=== PATIENT | female | born 1995 ===

== ENCOUNTER 2017-01-06 06:15 | Inpatient (IN) | payer BC ==
[~2017-01-06] VITALS: Ht 144.9 cm; Wt 68.2 kg
[2017-02-25] VITALS (20 sets, daily range): BP systolic 89–138; BP diastolic 41–93; PULSE 68–96; TEMP 97.6–97.8
[2017-02-25 06:18] LABS: BASO % 0.4 % (0.0-2.0); EOS # 0.3 (0.0-0.7); EOS % 2.4 % (0-4.0); GRAN # 6.7 (1.4-6.5); GRAN % 63.6 % (42.2-75.2); LYMPH # 2.6 (1.2-3.4); LYMPH % 24.4 % (20.0-51.0); MEAN CELL VOLUME 81 fl (80.0-95.0); MEAN CORPUSCULAR HGB CONC 33 g/dl (33.0-37.0); MEAN PLATELET VOLUME 10.2 fl (7.4-10.4); MONO # 0.9 (0.1-0.6); MONO % 8.6 % (1.7-9.3); PLATELET COUNT 204 K/mm3 (130-400); RED BLOOD COUNT 4.41 M/mm3 (4.10-5.30); REDCELL DISTRIBUTION WIDTH-CV 13.6 % (11.5-14.5); WHITE BLOOD COUNT 10.5 K/mm3 (4.8-10.8)
[2017-02-25 06:19] LABS: HEMATOCRIT 35.6 % (35.0-45.0); HEMOGLOBIN 11.7 g/dl (12.0-15.0); MEAN CORPUSCULAR HEMOGLOBIN 27 pg (26.0-32.0)
[2017-02-25] MEDS ORDERED: PRENATAL MVI (06:33)
[2017-02-26 01:30] VITALS: BP 105/75; PULSE 87; TEMP 97.7
[2017-02-26 07:19] VITALS: BP 107/66; PULSE 79
[2017-02-26] MEDS ORDERED: IBU600 MG PO (10:32)
[2017-02-26] MEDS ORDERED: PERCOCET 325 MG1 TA2 PO (10:32)
[2017-02-26 16:13] VITALS: BP 107/67; PULSE 88; TEMP 98.1
[2017-02-26 20:30] VITALS: BP 123/77; PULSE 75; TEMP 97.9
[2017-02-27 07:50] VITALS: BP 123/79; PULSE 88; TEMP 97.6
== END 2017-02-27 13:30 | disposition home or self-care (01) | DRG 766 ==
LOC: LDR → OB 02-25 05:54 → LDR 02-25 07:38 → OB 02-27 13:30 → LDRO 03-25 06:14 → EDSTATUS 03-25 07:32
PROVIDERS: Obstetrics & Gynecology
PROC: 10D00Z1 Extraction of Products of Conception, Low, Open Approach (ICD-10-PCS; principal; 2017-02-25)
DX: O34.211 Maternal care for low transverse scar from previous cesarean delivery (principal); N85.8 Other specified noninflammatory disorders of uterus; Z3A.39 39 weeks gestation of pregnancy; Z37.0 Single live birth
CPT/HCPCS: J0690; J1885; J2270; J2370; J2405; J2590; J7120